=== PATIENT | female | born 1970 | race Caucasian/White ===

== ENCOUNTER 2017-01-03 06:30 | Emergency (ER) | payer BC ==
[2017-01-03] MEDS ORDERED: ONDANSETRON 4 MG/2 ML VIAL ONE (06:57)
[2017-01-03] MEDS ORDERED: NS 1,000 ML IV ONE ×3 (07:07→07:27)
[2017-01-03] MEDS ORDERED: ONDANSETRON 4 MG/2 ML VIAL IVP ONE (07:07)
--- NOTE | 2017-01-03 07:20 | EDPHY ---
H & P Time Seen by Provider: 01/03/17 07:06 HPI/ROS: Chief complaint. Headache HPI. 46-year-old female history of migraines presents with headache of 2 days duration. She has a history of postural orthostatic tachycardia and dysautonomia. She has been worked up at [place] and has new medication from [place] over the past month. Denies fever or trauma. Headache is typical. She does have preceding visual symptoms. Has increased headache with visual and auditory stimuli. She has had nausea and vomiting. No relief with tramadol and antiemetics ROS Constitutional. no fever/chills, no weakness Eyes. no problems with vision ENT. no sore throat, no nasal drainage Cardiovascular. no chest pain Respiratory. no shortness of breath, no cough Abdominal. Nausea and vomiting . no problems urinating MS. no calf pain/swelling, no neck/back pain, no joint pain Skin. no rash Lymph. no swollen glands Neuro. Headache Past Medical/Surgical History: Hypermobility syndrome, postural orthostatic tachycardia, dysautonomia, chronic bronchitis Social History: Single nonsmoker no alcohol Smoking Status: Never smoked Physical Exam: General Appearance: Pleasant alert well-developed female mild distress vital signs stable Eyes: Pupils equal and round no pallor or injection. ENT, Mouth: Mucous membranes are moist. Respiratory: There are no retractions, lungs are clear to auscultation. Cardiovascular: Regular rate and rhythm. Gastrointestinal: Abdomen is soft and nontender, no masses, bowel sounds normal. Neurological: Awake and alert, sensory and motor exams grossly normal. Skin: Warm and dry, no rashes. Musculoskeletal: Neck is supple nontender. Extremities symmetrical, full range of motion. Psychiatric: Patient is oriented X 3, there is no agitation. Constitutional: Initial Vital Signs Temperature (C) 36.6 C 01/03/17 06:36 Heart Rate 87 01/03/17 06:36 Respiratory Rate 18 01/03/17 06:36 Blood Pressure 105/80 01/03/17 06:36 O2 Sat (%) 96 01/03/17 06:36 O2 Delivery Mode Room Air Allergies/Adverse Reactions: acetaminophen [From Vicodin] Allergy (Verified 01/03/17 06:33) hydrocodone bitartrate [From Vicodin] Allergy (Verified 01/03/17 06:33) oxycodone HCl [From Percocet] Allergy (Verified 01/03/17 06:33) Home Medications: Medication Instructions Recorded LaMICtal 07/16/16 traMADol 07/16/16 Ambien 01/03/17 Mestinon 01/03/17 Ondansetron Odt [Zofran Odt] 4 mg PO Q4PRN PRN #4 tab 01/03/17 busPIRone 01/03/17 Medical Decision Making Procedures: IV normal saline with 3 L of saline given. Patient is given Toradol, Reglan, Benadryl IV. ED Course/Re-evaluation: Re-evaluation at 9:15 a.m. patient has no headache. She feels well she feels comfortable going home. Patient and I discussed laboratory evaluation, treatment plan including criteria for return and importance of follow-up further evaluation. She expresses understanding and agreement Differential Diagnosis: Patient has a history of migraines. This is an apparent migraine. She also has problems with dehydration and autonomic dysfunction. At this point no evidence for infection intracranial injury or CVA. - Data Points Laboratory Results: Laboratory Results 01/03/17 07:00 01/03/17 07:00 01/03/17 01/03/17 01/03/17 07:00 07:00 07:00 WBC 9.12 10^3/uL 10^3/uL (3.80-9.50) RBC 4.44 10^6/uL 10^6/uL (4.18-5.33) Hgb 14.0 g/dL g/dL (12.6-16.3) Hct 42.3 % % (38.0-47.0) MCV 95.3 fL fL (81.5-99.8) MCH 31.5 pg pg (27.9-34.1) MCHC 33.1 g/dL g/dL (32.4-36.7) RDW 12.8 % % (11.5-15.2) Plt Count 242 10^3/uL 10^3/uL (150-400) MPV 11.4 fL fL (8.7-11.7) Neut % (Auto) 78.7 % H % (39.3-74.2) Lymph % (Auto) 16.6 % % (15.0-45.0) [place] % (Auto) 3.7 % L % (4.5-13.0) Eos % (Auto) 0.2 % L % (0.6-7.6) Baso % (Auto) 0.5 % % (0.3-1.7) Nucleat RBC Rel Count 0.0 % % (0.0-0.2) Absolute Neuts (auto) 7.17 10^3/uL H 10^3/uL (1.70-6.50) Absolute Lymphs (auto) 1.51 10^3/uL 10^3/uL (1.00-3.00) Absolute Monos (auto) 0.34 10^3/uL 10^3/uL (0.30-0.80) Absolute Eos (auto) 0.02 10^3/uL L 10^3/uL (0.03-0.40) Absolute Basos (auto) 0.05 10^3/uL 10^3/uL (0.02-0.10) Absolute Nucleated RBC 0.00 10^3/uL 10^3/uL (0-0.01) Immature Gran % 0.3 % % (0.0-1.1) Immature Gran # 0.03 10^3/uL 10^3/uL (0.00-0.10) Sodium 140 mEq/L mEq/L (134-144) Potassium 4.4 mEq/L mEq/L (3.5-5.2) Chloride 106 mEq/L mEq/L (97-110) Carbon Dioxide 22 mEq/l mEq/l (22-31) Anion Gap 12 mEq/L mEq/L (8-16) BUN 10 mg/dL mg/dL (7-23) Creatinine 0.7 mg/dL mg/dL (0.6-1.0) Estimated GFR > 60 Glucose 110 mg/dL H mg/dL (70-100) Calcium 9.7 mg/dL mg/dL (8.5-10.4) Beta HCG, Qual NEGATIVE Medications Given: Discontinued Medications Diphenhydramine HCl (Benadryl Injection) 25 mg IVP EDNOW ONE Stop: 01/03/17 07:28 Last Admin: 01/03/17 08:01 Dose: 25 mg Sodium Chloride (Ns) 1,000 mls @ 0 mls/hr IV ONCE ONE PRN Reason: Wide Open Stop: 01/03/17 07:08 Last Admin: 01/03/17 07:00 Dose: 1,000 mls Sodium Chloride (Ns) 1,000 mls @ 0 mls/hr IV ONCE ONE PRN Reason: Wide Open Stop: 01/03/17 07:28 Last Admin: 01/03/17 08:02 Dose: 1,000 mls Sodium Chloride (Ns) 1,000 mls @ 0 mls/hr IV ONCE ONE PRN Reason: Wide Open Stop: 01/03/17 07:28 Last Admin: 01/03/17 08:45 Dose: Not Given Ketorolac Tromethamine (Toradol) 30 mg IVP EDNOW ONE Stop: 01/03/17 07:28 Last Admin: 01/03/17 08:02 Dose: 30 mg Metoclopramide HCl (Reglan Injection) 10 mg IVP EDNOW ONE Stop: 01/03/17 07:28 Last Admin: 01/03/17 08:02 Dose: 10 mg Ondansetron HCl (Zofran) 4 mg IVP EDNOW ONE Stop: 01/03/17 07:08 Last Admin: 01/03/17 07:00 Dose: 4 mg Departure - Departure Disposition: Home, Routine, Self-Care Clinical Impression: Migraine Qualifiers: Migraine type: with aura Status migrainosus presence: with status migrainosus Intractability: not intractable Qualified Code(s): G43.101 - Migraine with aura , not intractable, with status migrainosus Condition: Good Instructions: Migraine Headache (ED) Additional Instructions: Frequent, small sips fluids wall nauseated. Gradual diet advancement. Zofran as needed for nausea vomiting. Return for worsening symptoms. Recheck in 1-2 days for continuing symptoms Referrals: LIGHT,GEORGE [Other] - As per Instructions Rodolfo Mena MD [Medical Doctor] - As per Instructions Prescriptions: Ondansetron Odt [Zofran Odt] 4 mg PO Q4PRN PRN #4 tab PRN Reason: Nausea/Vomiting, Use 1st
[2017-01-03 07:23] VITALS: TEMP 98.2
[2017-01-03] MEDS ORDERED: METOCLOPRAMIDE 10 MG/2 ML VIAL IVP ONE (07:27)
[2017-01-03] MEDS ORDERED: KETOROLAC 30 MG/1 ML SDV IVP ONE (07:27)
[2017-01-03 07:33] LABS: % IMMATURE GRANULYOCYTES 0.3 % (0.0-1.1); ABSOLUTE IMMATURE GRANULOCYTES 0.03 10^3/uL (0.00-0.10); ADD DIFF? NO; ADD MORPH? NO; ADD SCAN? NO; ATYPICAL LYMPHOCYTE FLAG 0 (0-99); FRAGMENT RBC FLAG 0 (0-99); HEMATOCRIT 42.3 % (38.0-47.0); LEFT SHIFT FLG 0 (0-99); LIPEMIA HEMOLYSIS FLAG 80 (0-99); MEAN CELL HEMOGLOBIN 31.5 pg (27.9-34.1); MEAN CELL HEMOGLOBIN CONCENTR. 33.1 g/dL (32.4-36.7); MEAN CELL VOLUME 95.3 fL (81.5-99.8); MEAN PLATELET VOLUME 11.4 fL (8.7-11.7); PLATELET CLUMPS FLAG 0 (0-99); PLATELET COUNT 242 10^3/uL (150-400); RED BLOOD CELL COUNT 4.44 10^6/uL (4.18-5.33); RED CELL DISTRIBUTION WIDTH 12.8 % (11.5-15.2)
[2017-01-03 07:42] LABS: ANION GAP 12 mEq/L (8-16); CALCIUM 9.7 mg/dL (8.5-10.4); CARBON DIOXIDE 22 mEq/l (22-31); CHLORIDE 106 mEq/L (97-110); CREATININE 0.7 mg/dL (0.6-1.0); GLOMERULAR FILTRATION RATE > 60; GLUCOSE 110 mg/dL (70-100); POTASSIUM 4.4 mEq/L (3.5-5.2); SODIUM 140 mEq/L (134-144)
[2017-01-03 08:46] VITALS: RESP 16; O2SAT 97
[2017-01-03 09:28] VITALS: BP 110/68; PULSE 72
== END 2017-01-03 09:28 | disposition home or self-care (01) ==
DX: G43.101 Migraine with aura, not intractable, with status migrainosus (principal)
CPT/HCPCS: 96374; J1200; J1885; J2405; J2765

== ENCOUNTER → 2017-03-02 | Outpatient (CLI) | payer BC | LOC: FIMAGING 13:13 | DX: Z12.31 Encounter for screening mammogram for malignant neoplasm of breast (principal) | CPT/HCPCS: G0202 ==

== ENCOUNTER 2017-05-25 23:15 | Emergency (ER) | payer BC ==
[2017-05-25] MEDS ORDERED: IPRATROPIUM/ALBUTEROL 3 ML DEYVIAL ONE (23:46)
[2017-05-26] MEDS ORDERED: IPRATROPIUM/ALBUTEROL 3 ML DEYVIAL IH ONE ×2 (00:02)
[2017-05-26] MEDS ORDERED: NS 1,000 ML IV ONE ×3 (00:02→01:51)
[2017-05-26] MEDS ORDERED: IPRATROPIUM/ALBUTEROL 3 ML DEYVIAL ONE (00:03)
[2017-05-26] MEDS ORDERED: methylPREDNISolone SOD SUCC 125 MG/2 ML VIAL IVP ONE (00:25)
[2017-05-26] MEDS ORDERED: LORazepam 2 MG/ML INJ IVP ONE (00:25)
[2017-05-26] MEDS ORDERED: LIDOCAINE 4% 5 ML AMP IH ONE (00:25)
[2017-05-26 01:58] VITALS: RESP 18
--- NOTE | 2017-05-26 01:58 | EDPHY ---
H & P Stated Complaint: pt coughing, having a reaction to something. Time Seen by Provider: 05/26/17 00:07 HPI/ROS: HPI The patient presents with cough which has been present for the last 3 days which is nonproductive and intermittent, it is associated with some shortness of breath. She has had episodes of this before. She has been taking Claritin twice daily lately. She says she has a history of mast cell activation disorder. She has benefit in the past from Solu-Medrol and Benadryl when her symptoms become severe. She does not have any chest pain.. REVIEW OF SYSTEMS Constitutional: No fever, no chills. Eyes: No discharge. ENT: No sore throat. Cardiovascular: No chest pain, no palpitations. Respiratory: See HPI Gastrointestinal: No abdominal pain, no vomiting. Genitourinary: No hematuria. Musculoskeletal: No back pain. Skin: No rashes. Neurological: No headache. PMHx: Mast cell activation disorder, pots, autonomic dysfunction Soc Hx: Recently moved here from [place] PHYSICAL General Appearance: Alert, actively coughing Eyes: Pupils equal and round no pallor or injection ENT, Mouth: Mucous membranes moist Respiratory: There are no retractions, lungs are clear to auscultation Cardiovascular: Regular rate and rhythm Gastrointestinal: Abdomen is soft and non-tender, no masses, bowel sounds normal Neurological: A&O, moves all extremities Skin: Warm and dry, no rashes Musculoskeletal: Neck is supple non tender Extremities: symmetrical, full range of motion Psychiatric: Patient is oriented X 3, there is no agitation Source: Patient, Old records Exam Limitations: No limitations - Personal History LMP (Females 10-55): 15-21 Days Ago - Medical/Surgical History Hx Asthma: Yes Hx Chronic Respiratory Disease: Yes Hx Diabetes: No Hx Cardiac Disease: No Hx Renal Disease: No Hx Cirrhosis: No Hx Alcoholism: No Hx HIV/AIDS: No Hx Splenectomy or Spleen Trauma: No Other PMH: hypermobility syndrome/ POSTURAL ORTHOSTATIC TACHYCARDIA/DISAUTONOMIA , CHRONIC BRONCHITIS, mastcell activation disorder - Social History Smoking Status: Former smoker Constitutional: Initial Vital Signs Temperature (C) 36.8 C 05/25/17 23:20 Heart Rate 92 05/25/17 23:20 Respiratory Rate 16 05/25/17 23:20 Blood Pressure 139/93 H 05/25/17 23:20 O2 Sat (%) 99 05/25/17 23:20 O2 Delivery Mode Room Air Allergies/Adverse Reactions: acetaminophen [From Vicodin] Allergy (Verified 01/03/17 06:33) hydrocodone bitartrate [From Vicodin] Allergy (Verified 01/03/17 06:33) oxycodone HCl [From Percocet] Allergy (Verified 01/03/17 06:33) Home Medications: Medication Instructions Recorded LaMICtal 07/16/16 traMADol 07/16/16 Ambien 01/03/17 Ondansetron Odt [Zofran Odt] 4 mg PO Q4PRN PRN #4 tab 01/03/17 Benadryl 05/25/17 Claritin 05/25/17 Klonopin 05/25/17 Propranolol HCl 05/25/17 Xanax 05/25/17 Zantac 05/25/17 predniSONE [Prednisone] 40 mg PO DAILY #16 tablet 05/26/17 Medical Decision Making Differential Diagnosis: This is a 46-year-old female with mast cell activation disorder per her report who presents with cough for the last several days. This is associated with some hoarseness of her voice. This is typical of her previous episodes of respiratory symptoms from her mast cell disorder she states. On exam, she is coughing though is not tachypneic and has normal oxygen saturation. She does not have stridor and her lungs sound clear. She does not want to have a chest x -ray because she says "it will not show anything". In the emergency room, she was given IV fluid for her postural hypotension. She was given Solu-Medrol and Benadryl as well as a DuoNeb for her cough. This improved her symptoms. She was also given nebulized lidocaine for her cough. She felt well enough to go home. I will write her for a short course of prednisone. I have advised her to call her primary care doctor tomorrow to arrange for follow-up and she is in agreement with this plan. Differential diagnosis includes reactive airway disease, pneumonia, pneumothorax. - Data Points Medications Given: Discontinued Medications Albuterol/Ipratropium (Duoneb) 3 ml IH EDNOW ONE Stop: 05/26/17 00:03 Last Admin: 05/26/17 00:05 Dose: 3 ml Albuterol/Ipratropium (Duoneb) 3 ml IH EDNOW ONE Stop: 05/26/17 00:03 Last Admin: 05/26/17 00:05 Dose: 3 ml Diphenhydramine HCl (Benadryl Injection) 50 mg IVP EDNOW ONE Stop: 05/26/17 00:14 Last Admin: 05/26/17 00:16 Dose: 50 mg Sodium Chloride (Ns) 1,000 mls @ 0 mls/hr IV ONCE ONE; Wide Open PRN Reason: Protocol Stop: 05/26/17 00:03 Last Admin: 05/26/17 00:05 Dose: 1,000 mls Sodium Chloride (Ns) 1,000 mls @ 0 mls/hr IV ONCE ONE; Wide Open PRN Reason: Protocol Stop: 05/26/17 00:41 Last Admin: 05/26/17 00:44 Dose: 1,000 mls Sodium Chloride (Ns) 1,000 mls @ 0 mls/hr IV ONCE ONE; Wide Open PRN Reason: Protocol Stop: 05/26/17 01:52 Last Admin: 05/26/17 01:55 Dose: 1,000 mls Lidocaine HCl (Lidocaine Hcl 4%) 100 mg IH EDNOW ONE Stop: 05/26/17 00:26 Last Admin: 05/26/17 01:07 Dose: 100 mg Lorazepam (Ativan Injection) 0.5 mg IVP EDNOW ONE Stop: 05/26/17 00:26 Last Admin: 05/26/17 00:36 Dose: Not Given Methylprednisolone Sodium Succinate (Solu-Medrol) 125 mg IVP EDNOW ONE Stop: 05/26/17 00:26 Last Admin: 05/26/17 00:36 Dose: 125 mg Departure - Departure Disposition: Home, Routine, Self-Care Clinical Impression: Cough, Mast cell activation Condition: Good Instructions: Prednisone (By mouth) Additional Instructions: Please follow-up with your regular doctor tomorrow. Please return to the emergency room if your worse in any way. Referrals: ANTELMO LUKE [Other] - As per Instructions Prescriptions: predniSONE [Prednisone] 40 mg PO DAILY #16 tablet
[2017-05-26 03:05] VITALS: BP 114/79; PULSE 77; TEMP 98.4; O2SAT 95
== END 2017-05-26 03:03 | disposition home or self-care (01) ==
DX: R05 Cough (principal); D89.40 Mast cell activation, unspecified; J45.909 Unspecified asthma, uncomplicated; Z87.891 Personal history of nicotine dependence
CPT/HCPCS: 96374; J1200; J2060

== ENCOUNTER 2017-07-20 12:17 | Emergency (ER) | payer BC ==
[2017-07-20] MEDS ORDERED: NS 1,000 ML IV ONE ×2 (13:31)
[2017-07-20] MEDS ORDERED: methylPREDNISolone SOD SUCC 125 MG/2 ML VIAL IVP ONE (13:32)
[2017-07-20 13:37] LABS: % IMMATURE GRANULYOCYTES 0.5 % (0.0-1.1); ABSOLUTE IMMATURE GRANULOCYTES 0.04 10^3/uL (0.00-0.10); ADD DIFF? NO; ADD MORPH? NO; ADD SCAN? NO; ATYPICAL LYMPHOCYTE FLAG 10 (0-99); FRAGMENT RBC FLAG 0 (0-99); HEMATOCRIT 42.4 % (38.0-47.0); HEMOGLOBIN 13.9 g/dL (12.6-16.3); LEFT SHIFT FLG 0 (0-99); LIPEMIA HEMOLYSIS FLAG 80 (0-99); MEAN CELL HEMOGLOBIN CONCENTR. 32.8 g/dL (32.4-36.7); MEAN CELL VOLUME 94.6 fL (81.5-99.8); MEAN PLATELET VOLUME 11.4 fL (8.7-11.7); PLATELET CLUMPS FLAG 0 (0-99); PLATELET COUNT 178 10^3/uL (150-400); RED BLOOD CELL COUNT 4.48 10^6/uL (4.18-5.33); RED CELL DISTRIBUTION WIDTH 13.7 % (11.5-15.2)
[2017-07-20 13:42] LABS: ANION GAP 10 mEq/L (8-16); CALCIUM 10.1 mg/dL (8.5-10.4); CARBON DIOXIDE 22 mEq/l (22-31); CHLORIDE 101 mEq/L (97-110); CREATININE 0.9 mg/dL (0.6-1.0); GLOMERULAR FILTRATION RATE > 60; GLUCOSE 81 mg/dL (70-100); POTASSIUM 4.2 mEq/L (3.5-5.2); SODIUM 133 mEq/L (134-144)
--- NOTE | 2017-07-20 13:50 | EDPHY ---
H & P Time Seen by Provider: 07/20/17 13:20 HPI/ROS: CHIEF COMPLAINT: "I am going into a really bad flare right now " HISTORY OF PRESENT ILLNESS: The patient tells me she has chronic autoimmune mast cell reaction and tells me she is having a severe reaction starting 1 week ago. She says her neuropathy pains in her legs are worse and she started getting a feeling that her throat is closing up and she can't stand up because she gets dizzy or lightheaded. She presents today because her symptoms are severe. She called her primary care doctor whose name is Soraya Simms in [place], and prior to coming and took 2 oral Xanax, 2 Benadryl tablets, 1 montelukast, 1 Pepcid, 1 puff of her Advair, 2 Claritin, and 2 prednisone tablets. The patient tells me when she gets the symptoms only thing that helps her is supplemental oxygen as well as 2 or 3 L of IV normal saline and IV Solu-Medrol with a steroid pack afterwards. REVIEW OF SYSTEMS: Eye: no change in vision ENT: no sore throat Cardiac: No chest pain, but dizzy on standing. Pulmonary: no cough or SOB Abdomen: no vomiting, diarrhea, abdominal pain Musculoskeletal: Peripheral neuropathy with leg pain. Skin: no rash Neuro: no headache Constitutional: no fever : no urinary symptoms A comprehensive 10 point review of systems is otherwise negative aside from elements mentioned in the history of present illness. PAST MEDICAL HISTORY: Postural orthostatic tachycardia, mast cell activation disorder, Sjogrens Social history: The patient tells me she is in the process of moving to [place] and in fact was packing today. General Appearance: Alert and conversant, cooperative. Eyes: No scleral icterus. ENT, Mouth: Slightly dry mucous membranes. Respiratory: Normal respiratory effort, breath sounds equal, lungs are clear to auscultation. Cardiovascular: Regular rate and rhythm. Gastrointestinal: Abdomen is soft and non tender. Neurological: Alert and oriented x3. Normally conversant. Face symmetric, normal movement and sensation in all extremities. Skin: Warm and dry, no rashes. Musculoskeletal: No peripheral edema and no joint swelling. Psychiatric: Not agitated. Emergency Department course/MDM: IV normal saline 3 L, Solu-Medrol 125 mg IV. The patient has her own antihistamines. She says that when she has these flare-ups she increases her doses of Xanax and Klonopin because it helps with the mast cells. She has all of her own medications as far as antihistamines and benzodiazepines. 1515: Patient is feeling better and was up to the bathroom without assistance or dizziness or syncope. She has adequate resources medications at home for self-care. Of note the initial chief complaint from admissions reference irregular heart rate but the patient does not have that complaint on my interview, does not have extrasystoles or irregular heart rate on physical exam, pulse in the 80s. Smoking Status: Former smoker Constitutional: Initial Vital Signs Temperature (C) 36.7 C 07/20/17 12:24 Heart Rate 82 07/20/17 12:24 Respiratory Rate 16 07/20/17 12:24 Blood Pressure 119/80 07/20/17 12:24 O2 Sat (%) 98 07/20/17 12:24 O2 Delivery Mode Room Air Allergies/Adverse Reactions: acetaminophen [From Vicodin] Allergy (Verified 07/20/17 12:22) hydrocodone bitartrate [From Vicodin] Allergy (Verified 07/20/17 12:22) oxycodone HCl [From Percocet] Allergy (Verified 07/20/17 12:22) Home Medications: Medication Instructions Recorded LaMICtal 07/16/16 traMADol 07/16/16 Ambien 01/03/17 Ondansetron Odt [Zofran Odt] 4 mg PO Q4PRN PRN #4 tab 01/03/17 Benadryl 05/25/17 Claritin 05/25/17 Klonopin 05/25/17 Xanax 05/25/17 Zantac 05/25/17 Atenolol 07/20/17 predniSONE 10 mg PO AD #15 tab 07/20/17 Medical Decision Making - Data Points Laboratory Results: Laboratory Results 07/20/17 12:57 07/20/17 12:57 07/20/17 07/20/17 07/20/17 12:57 12:57 12:57 WBC 7.56 10^3/uL 10^3/uL (3.80-9.50) RBC 4.48 10^6/uL 10^6/uL (4.18-5.33) Hgb 13.9 g/dL g/dL (12.6-16.3) Hct 42.4 % % (38.0-47.0) MCV 94.6 fL fL (81.5-99.8) MCH 31.0 pg pg (27.9-34.1) MCHC 32.8 g/dL g/dL (32.4-36.7) RDW 13.7 % % (11.5-15.2) Plt Count 178 10^3/uL 10^3/uL (150-400) MPV 11.4 fL fL (8.7-11.7) Neut % (Auto) 78.7 % H % (39.3-74.2) Lymph % (Auto) 15.7 % % (15.0-45.0) [place] % (Auto) 4.0 % L % (4.5-13.0) Eos % (Auto) 0.4 % L % (0.6-7.6) Baso % (Auto) 0.7 % % (0.3-1.7) Nucleat RBC Rel Count 0.0 % % (0.0-0.2) Absolute Neuts (auto) 5.95 10^3/uL 10^3/uL (1.70-6.50) Absolute Lymphs (auto) 1.19 10^3/uL 10^3/uL (1.00-3.00) Absolute Monos (auto) 0.30 10^3/uL 10^3/uL (0.30-0.80) Absolute Eos (auto) 0.03 10^3/uL 10^3/uL (0.03-0.40) Absolute Basos (auto) 0.05 10^3/uL 10^3/uL (0.02-0.10) Absolute Nucleated RBC 0.00 10^3/uL 10^3/uL (0-0.01) Immature Gran % 0.5 % % (0.0-1.1) Immature Gran # 0.04 10^3/uL 10^3/uL (0.00-0.10) Sodium 133 mEq/L L mEq/L (134-144) Potassium 4.2 mEq/L mEq/L (3.5-5.2) Chloride 101 mEq/L mEq/L (97-110) Carbon Dioxide 22 mEq/l mEq/l (22-31) Anion Gap 10 mEq/L mEq/L (8-16) BUN 6 mg/dL L mg/dL (7-23) Creatinine 0.9 mg/dL mg/dL (0.6-1.0) Estimated GFR > 60 Glucose 81 mg/dL mg/dL (70-100) Calcium 10.1 mg/dL mg/dL (8.5-10.4) Beta HCG, Qual NEGATIVE Medications Given: Discontinued Medications Sodium Chloride (Ns) 1,000 mls @ 0 mls/hr IV EDNOW ONE; Wide Open PRN Reason: Protocol Stop: 07/20/17 13:32 Last Admin: 07/20/17 13:44 Dose: 1,000 mls Sodium Chloride (Ns) 1,000 mls @ 0 mls/hr IV EDNOW ONE; Wide Open PRN Reason: Protocol Stop: 07/20/17 13:32 Last Admin: 07/20/17 13:45 Dose: 1,000 mls Methylprednisolone Sodium Succinate (Solu-Medrol) 125 mg IVP EDNOW ONE Stop: 07/20/17 13:33 Last Admin: 07/20/17 13:44 Dose: 125 mg Departure - Departure Disposition: Home, Routine, Self-Care Clinical Impression: Orthostatic lightheadedness Condition: Good Instructions: Prednisone (By mouth) Referrals: Soraya Simms [Other] - 1-2 days without fail (your PCP in [place]) Prescriptions: predniSONE 10 mg PO AD #15 tab
[2017-07-20 15:26] VITALS: BP 115/74; PULSE 68; RESP 18; TEMP 98.2; O2SAT 97
== END 2017-07-20 15:27 | disposition home or self-care (01) ==
DX: R42 Dizziness and giddiness (principal); E86.9 Volume depletion, unspecified; Z87.891 Personal history of nicotine dependence
CPT/HCPCS: 96374